=== PATIENT | female | born 1995 | race African-American/Black ===

== ENCOUNTER 2019-05-21 07:30 | Outpatient (CLI) | payer OTHER ==
--- NOTE | 2019-05-21 10:41 | ULT ---
OBSTETRICAL ULTRASOUND: INDICATIONS: Evaluate anatomy. FINDINGS: A single live intrauterine gestation, in vertex presentation. Placenta is anterior in location witho ut previa. ERINN is noted as 15.4 cm. Cardiac activity is noted at 149 beats per minute. The visualized head, cerebellum, , lateral ventricles, four-chambered heart, stomach, ki dneys, cord insertion, bladder, spine, lips, nose, extremities, and three-vessel cord appear within n ormal limits. The estimated weight is 840 g (1 lb 14 oz), 65th percentile. The average gestational age by ultrasound is 25 weeks 4 days with estimated due date 08/30/2019. Cli nical age is 25 weeks 1 day with estimated due date is 09/02/2019. Biparietal diameter is 6.13 cm, giving an estimated gestational age of 25 weeks 0 days. Head circumference is 23.03 cm, giving an estimated gestational age of 25 weeks 1 day. Abdominal circumference is 20.22 cm, giving an estimated gestational age of 24 weeks 6 days. Femoral neck is 5.05 cm, giving an estimated gestational age of 27 weeks 1 day. IMPRESSION: Single live intrauterine gestation with size and dates as above. POS: [facility]
== END 2019-05-21 07:31 | disposition home or self-care (01) ==
LOC: BICULT 07:30
PROVIDERS: ATTEND Family Medicine
DX: O09.892 Supervision of other high risk pregnancies, second trimester (principal); Z3A.25 25 weeks gestation of pregnancy
CPT/HCPCS: 76805

== ENCOUNTER 2019-11-22 17:37 | Emergency (ER) | payer OTHER, SELFPAY ==
[2019-11-22 19:40] LABS: Bilirubin Negative (Negative); Blood, Urine 2+ (Negative); Clarity Turbid (Clear); Glucose, Urine (Dipstick) Normal (Negative); Leukocyte Negative Leu/uL (Negative); Nitrite Negative (Negative); Protein, Urine (Dipstick) 20 mg/dL (Neg-Trace); Squamous Epithelial 21-50 HPF (0-3); Urobilinogen Normal mg/dL (Less than 2)
[2019-11-22 19:41] LABS: Bacteria/HPF 1+ HPF (None Seen)
[2019-11-22 19:48] LABS: Amphetamine Detected (NotDetected); Barbiturates Screen Not Detected (NotDetected); Benzodiazepine Screen Not Detected (NotDetected); Cocaine Metabolite Screen Not Detected (NotDetected); Medtox Control Line Valid? VALID (VALID); Medtox Reader # READER 4; Methadone Not Detected (NotDetected); Methamphetamine Detected (NotDetected); Opiate Screen Not Detected (NotDetected); Oxycodone Screen Not Detected (NotDetected); Phencyclidine (PCP) Not Detected (NotDetected); THC/Cannabinoid Screen Detected (NotDetected); Tricyclic Screen Not Detected (NotDetected)
== END 2019-11-23 00:44 ==
LOC: ERS 17:37
DX: T43.222A Poisoning by selective serotonin reuptake inhibitors, intentional self-harm, initial encounter (principal); F41.9 Anxiety disorder, unspecified; F32.9 Major depressive disorder, single episode, unspecified; F17.210 Nicotine dependence, cigarettes, uncomplicated; Z79.899 Other long term (current) drug therapy
CPT/HCPCS: 80306; 81003; 81015; 93005

== ENCOUNTER 2020-04-27 09:46 | Outpatient (CLI) | payer OTHER ==
--- NOTE | 2020-04-27 10:42 | ULT ---
ULTRASOUND OBSTETRICAL COMPLETE: DATE: 04/27/2020 HISTORY: 24-year-old female ICD-10: "O09.92, high-risk in second trimester. Cervical length, size an d dates, complete anatomy." FINDINGS: number: lainez lie: Began cephalic, but breech at end of study. Maternal cervix: 4 cm. Closed. Placenta: Posterior fundal. No placenta previa. Amniotic fluid volume: ERINN = 11 cm heart rate: 146 bpm The following anatomy is visualized, with no evidence of anomalies: Head, cerebellum, lateral ventricles, four-chamber heart, stomach, kidneys, cord insertion, bladder, cervical spine, thoracic spine, lumbar spine, sacrum, nose and lips, upper extremities, lower extremities, and three-vessel cord. biometry: Biparietal diameter (BPD): 5.2 cm 22 w 0 d Head circumference (HC): 19.9 cm 22 w 1 d Abdominal circumference (AC): 18.2 cm 23 w 0 d Femur length (FL): 4.0 cm 23 w 1 d Average ultrasound age (AUA): 22 w 4 d Estimated date of delivery (PAUL): 08/27/2020 Estimated weight (EFW): 541 g +/- 79 g IMPRESSION: 1) Live 2nd trimester intrauterine gestation. 2) Estimated gestational age of 22 weeks, 4 days 3) variable lie. 4) no anatomic abnormality identified.
== END 2020-04-27 09:47 | disposition home or self-care (01) ==
LOC: BICULT 09:46
PROVIDERS: ATTEND Nurse Practitioner
DX: O09.92 Supervision of high risk pregnancy, unspecified, second trimester (principal); Z3A.22 22 weeks gestation of pregnancy
CPT/HCPCS: 76805

== ENCOUNTER 2020-08-04 16:43 | Day surgery (SDC) | payer OTHER ==
[2020-08-04 17:44] VITALS: BP 103/55; TEMP 98.3; BMI 42.2
[2020-08-04] MEDS ORDERED: hydrALAZINE 20 MG/ML VIAL SLOW IVP PRN (19:53)
[2020-08-04] MEDS ORDERED: Lactated Ringer's 1,000 ML IV SCH (20:00)
[2020-08-04] MEDS ORDERED: Dextrose 5%-Lactated Ringers 1,000 ML IV SCH (20:00)
[2020-08-04 20:27] LABS: Medtox Reader # READER 4
[2020-08-04 20:29] LABS: Amphetamine Not Detected (NotDetected); Barbiturates Screen Not Detected (NotDetected); Benzodiazepine Screen Not Detected (NotDetected); Cocaine Metabolite Screen Not Detected (NotDetected); Medtox Control Line Valid? VALID (VALID); Methadone Not Detected (NotDetected); Methamphetamine Not Detected (NotDetected); Opiate Screen Not Detected (NotDetected); Oxycodone Screen Not Detected (NotDetected); Phencyclidine (PCP) Not Detected (NotDetected); THC/Cannabinoid Screen Not Detected (NotDetected); Tricyclic Screen Not Detected (NotDetected)
--- NOTE | 2020-08-04 20:46 | ULT ---
ULTRASOUND BIOPHYSICAL PROFILE: HISTORY: distress, premature contractions FINDINGS: A single live intrauterine gestation is seen. heart rate:141bpm ERINN: 22 cm Placenta: Posterior without placenta previa OB biophysical profile: tone: 2 breathin movements: 2 Amniotic fluid: 2 IMPRESSION: The ultrasound biophysical profile score is 8 out of 8.
--- NOTE | 2020-08-04 23:03 | PRG ---
DATE OF SERVICE: 08/04/2020 PRIMARY OB: Dr. Romie Roberts. CHIEF COMPLAINT: Abdominal pain. HISTORY OF PRESENT ILLNESS: The patient is a 25-year-old G4, P2 female with an intrauterine at 37 weeks and 5 days, presenting to Labor and Delivery with uterine contractions that began at 5:00 this morning. The patient reports the contractions have been a regular in frequency and also in intensity. She does admit that she had sex last night. She denies vaginal bleeding or leakage of fluid. She denies cough or fever, headache, chest pain, shortness of breath. She has experienced some nausea and vomiting this morning, which is not uncommon for her, but once the day starts that gets better. She denies constipation or diarrhea any and she denies any new rashes. She reports that she has two areas of a dry scaly rash that she has been told is a fungal infection on her left upper thigh and her umbilicus that is pruritic. She denies hip problems, knee problems, muscle weakness. Again denies vaginal bleeding, leakage of fluid, urinary urgency or frequency. PAST MEDICAL HISTORY: History of depression and anxiety. PAST SURGICAL HISTORY: She has had two prior C-sections. SOCIAL HISTORY: Denies drug or alcohol use. She does report that she smokes about a pack over 3 days. ALLERGIES: NO KNOWN DRUG ALLERGIES. MEDICATIONS: vitamins. OB LABS: Unavailable at time of dictation. REVIEW OF SYSTEMS: Per HPI. PHYSICAL EXAMINATION: VITAL SIGNS: Blood pressure 103/55, heart rate of 88, respiratory rate of 14, saturating 98% on room air, temperature 98.3. GENERAL: She appears to be in no acute distress. She is alert, oriented, cooperative, and pleasant to interact with. HEAD: Normocephalic, atraumatic. LUNGS: Clear to auscultation bilaterally. HEART: Has a regular rate and rhythm. ABDOMEN: Gravid, soft, nontender. EXTREMITIES: Nontender, nonedematous. PELVIS: Cervical exam per nursing staff is 1 and 50. heart tracing, the patient has some difficulty with tracing due to habitus. She also has initially tracing with baseline in the 140s with some minimal to moderate long-term variability, no accelerations. Uterine contractions show some irritability with contractions about every 7-10 minutes apart. BPP was performed and was found to be 8/8. Subsequent heart tracing did confirm change of the baseline in the 140s with moderate long-term variability, positive 15 x 15 accelerations. During the patient's stay, she has received 1 L of lactated Ringer's and 1 L of D5 LR at 250 an hour. ASSESSMENT AND PLAN: The patient is a 25-year-old G4, P2 female with an intrauterine at 37 weeks and 5 days with uterine contractions, but no evidence of labor. Fetus had a nonreactive NST, but has a reassuring BPP and subsequent heart tracing. The patient is being discharged home. She has an appointment with Dr. Roberts on Monday that we have encouraged she keep. Job ID: [id number]
== END 2020-08-04 22:00 | disposition home health service (06) ==
LOC: L&D/OP 16:43
PROVIDERS: ATTEND Family Medicine
DX: O47.1 False labor at or after 37 completed weeks of gestation (principal); O99.333 Smoking (tobacco) complicating pregnancy, third trimester; F17.210 Nicotine dependence, cigarettes, uncomplicated; O34.219 Maternal care for unspecified type scar from previous cesarean delivery; Z3A.37 37 weeks gestation of pregnancy
CPT/HCPCS: 76819; 80306

== ENCOUNTER 2020-08-14 10:26 | Outpatient (CLI) | payer OTHER ==
[2020-08-15 15:22] LABS: SARS-CoV-2 MS2 Positive; SARS-CoV-2 N Gene Negative; SARS-CoV-2 S Gene Negative; SARS-CoV-2 by NAA Not Detected (NotDetected); SARS-CoV-2 orf1ab Negative
== END 2020-08-14 10:27 | disposition home or self-care (01) ==
LOC: LABBT 10:26
PROVIDERS: ATTEND Family Medicine
DX: Z20.828 Contact with and (suspected) exposure to other viral communicable diseases (principal)
CPT/HCPCS: 87635; U0003

== ENCOUNTER 2020-08-17 09:42 | Inpatient (IN) | payer OTHER ==
[2020-08-17 10:14] VITALS: BMI 40.6
[2020-08-17] MEDS ORDERED: hydrALAZINE 20 MG/ML VIAL SLOW IVP PRN ×2 (11:04→15:54)
[2020-08-17] MEDS ORDERED: Promethazine HCl 25 MG/ML VIAL IM PRN ×3 (11:04→15:54)
[2020-08-17] MEDS ORDERED: Lactated Ringer's 1,000 ML IV SCH (11:04)
[2020-08-17] MEDS ORDERED: Bicitra 30 ML UDCUP PO SCH (11:04)
[2020-08-17] MEDS ORDERED: Ondansetron PF 4 MG/2 ML Vial IVP PRN ×3 (11:04→15:54)
[2020-08-17] MEDS ORDERED: CEFAZOLIN 3 GM in Sodium Chloride 0.9% 100 ML IVPB SCH (11:15)
[2020-08-17 11:51] LABS: Hemoglobin 10.1 g/dL (12.0-16.0); Mean Corpuscular HGB CONC 32.1 g/dL (32.0-36.0); Mean Corpuscular Hemoglobin 27.7 pg (27.0-31.0); Mean Corpuscular Volume 86.1 fL (78.0-98.0); Platelet Count 277 thou/uL (130-400); RBC Distribution Width 12.7 % (11.5-14.5); Red Blood Cell (RBC) Count 3.64 mill/uL (4.20-5.40); White Blood Cell (WBC) Count 7.8 thou/uL (4.8-10.8)
[2020-08-17 11:58] LABS: ALT (SGPT) 9 U/L (8-55); AST (SGOT) 12 U/L (5-34); Albumin 3.2 g/dL (3.5-5.0); Alkaline Phosphatase 276 U/L (40-110); Anion Gap 12 mmol/L (10-20); BUN (Urea Nitrogen) 8 mg/dL (7.0-18.7); Bilirubin, Total 0.4 mg/dL (0.2-1.2); Calc. Creatinine Clearance 239 mL/min (70-130); Calcium 8.4 mg/dL (7.8-10.44); Carbon Dioxide 24 mmol/L (22-29); Chloride 105 mmol/L (98-107); Estimated GFR-MDRD Greater than 90; Globulin 3.4 g/dL (2.4-3.5); Glucose 73 mg/dL (70-105); Potassium 4.1 mmol/L (3.5-5.1); Protein, Total 6.6 g/dL (6.0-8.3); Sodium 137 mmol/L (136-145)
[2020-08-17 12:15] LABS: HBSAg Index 0.13 S/CO (0-0.99); Hep B Surf Ag Non-Reactive S/CO (NonReactive); Syphilis Antibody Nonreactive (Nonreactive); Syphilis Antibody Index 0.04 S/CO (<1.00 Non-Reactive)
[2020-08-17] MEDS ORDERED: Ondansetron PF 4 MG/2 ML Vial ONE ×2 (12:51→12:52)
[2020-08-17] MEDS ORDERED: ePHEDrine 50 MG/ML VIAL ONE (12:51)
[2020-08-17] MEDS ORDERED: Ketorolac Tromethamine 30 MG/ML VIAL ONE (12:51)
[2020-08-17] MEDS ORDERED: PHENYLEPHRINE-NS 100 MCG/ML 10 ML SYRINGE ONE (12:51)
[2020-08-17] MEDS ORDERED: Oxytocin 10 UNITS/ML VIAL ONE (12:51)
[2020-08-17] MEDS ORDERED: Morphine PF 10 MG/10 ML VIAL ONE (12:51)
[2020-08-17] MEDS ORDERED: L&D-Morphine 4 MG/ML VIAL SLOW IVP PRN (13:28)
[2020-08-17] MEDS ORDERED: Naloxone HCl 0.4 mg/ml Vial IV PRN (13:28)
[2020-08-17] MEDS ORDERED: Naloxone HCl 0.4 mg/ml Vial IVP PRN ×2 (13:28)
[2020-08-17] MEDS ORDERED: Promethazine HCl 25 MG SUPP PR PRN (13:28)
[2020-08-17] MEDS ORDERED: Ketorolac Tromethamine 30 MG/ML VIAL IVP PRN (13:28)
[2020-08-17] MEDS ORDERED: Meperidine HCl/PF 25 MG/ML VIAL SLOW IVP PRN (13:28)
[2020-08-17] MEDS ORDERED: HYDROmorphone 2 MG/ML VIAL SLOW IVP PRN (13:28)
[2020-08-17] MEDS ORDERED: Ondansetron HCl/PF 4 MG/2 ML Vial IVP PRN (13:28)
[2020-08-17] MEDS ORDERED: Ketorolac Tromethamine 30 MG/ML VIAL IVP SCH (13:30)
[2020-08-17] MEDS ORDERED: Communication Order-Pharmacy FS SCH (13:30)
[2020-08-17] MEDS ORDERED: diphenhydrAMINE 50 MG/ML VIAL ONE (15:23)
[2020-08-17] MEDS: diphenhydrAMINE 50 MG/ML VIAL IVP PRN ×2 (15:25→23:35)
[2020-08-17] MEDS ORDERED: Simethicone Chewable 80 MG TAB PO PRN (15:54)
[2020-08-17] MEDS ORDERED: diphenhydrAMINE 25 MG CAP PO PRN (15:54)
[2020-08-17] MEDS ORDERED: Adacel (T-DAP) 0.5 ML SYRINGE IM ONE (15:54)
[2020-08-17] MEDS ORDERED: NS / Oxytocin 40 units/1000ml 1,000 ML IV SCH (15:54)
[2020-08-17] MEDS ORDERED: Lanolin Ointment 7 GM TUBE TOP PRN (15:54)
[2020-08-17] MEDS ORDERED: Bisacodyl 10 MG SUPP PR PRN (15:54)
[2020-08-17] MEDS: Ketorolac Tromethamine 30 MG/ML VIAL IVP SCH ×2 (18:50→23:34)
[2020-08-17] MEDS: Docusate Calcium (SURFAK) 240 MG CAP PO SCH (22:04)
[2020-08-17] MEDS: Ferrous Sulfate 325 MG TAB PO SCH (23:26)
[2020-08-18] MEDS ORDERED: Meperidine HCl/PF 25 MG/ML VIAL IM PRN (01:30)
[2020-08-18] MEDS ORDERED: HYDROcodone/Acetaminophen 5/325 mg Tablet PO PRN (01:30)
[2020-08-18] MEDS ORDERED: Sodium Chloride 0.9% 10 ML ONE (04:54)
[2020-08-18] MEDS: Ketorolac Tromethamine 30 MG/ML VIAL IVP SCH (05:00)
[2020-08-18 06:37] LABS: Mean Corpuscular HGB CONC 32.7 g/dL (32.0-36.0); Mean Corpuscular Hemoglobin 28.3 pg (27.0-31.0); Mean Corpuscular Volume 86.6 fL (78.0-98.0); Mean Platelet Volume 8.5 fL (7.4-10.4); Platelet Count 230 thou/uL (130-400); RBC Distribution Width 12.9 % (11.5-14.5); Red Blood Cell (RBC) Count 3.16 mill/uL (4.20-5.40); White Blood Cell (WBC) Count 8.3 thou/uL (4.8-10.8)
[2020-08-18] MEDS: Ferrous Sulfate 325 MG TAB PO SCH ×2 (07:51→23:31)
[2020-08-18] MEDS: Prenatal Vitamin 1 TAB PO SCH (07:54)
[2020-08-18] MEDS: Docusate Calcium (SURFAK) 240 MG CAP PO SCH ×2 (07:54→20:57)
[2020-08-18] MEDS: HYDROcodone/Acetaminophen 5/325 mg Tablet PO PRN ×2 (12:14→16:24)
[2020-08-18] MEDS: Ibuprofen 800 MG TAB PO SCH ×2 (15:06→20:56)
[2020-08-19] MEDS: HYDROcodone/Acetaminophen 5/325 mg Tablet PO PRN ×5 (01:40→21:07)
[2020-08-19] MEDS: Ibuprofen 800 MG TAB PO SCH ×3 (05:41→21:06)
[2020-08-19] MEDS: Docusate Calcium (SURFAK) 240 MG CAP PO SCH ×2 (09:14→21:06)
[2020-08-19] MEDS: Prenatal Vitamin 1 TAB PO SCH (09:14)
[2020-08-19] MEDS: Ferrous Sulfate 325 MG TAB PO SCH ×2 (09:15→21:07)
--- NOTE | 2020-08-19 19:51 | OP ---
DATE OF PROCEDURE: 08/17/2020 PREOPERATIVE DIAGNOSES: 1. 38 weeks 4 days. 2. Gestational hypertension. 3. Previous x2. POSTOPERATIVE DIAGNOSES: 1. 38 weeks 4 days. 2. Gestational hypertension. 3. Previous x2. PROCEDURES PERFORMED: Repeat low cervical transverse . ANESTHESIA: Spinal. DESCRIPTION OF PROCEDURE: After informed consent was obtained from the patient, she was taken to the operating room where spinal anesthesia was administered. She was prepped and draped in the usual sterile fashion. A Pfannenstiel incision was created over her previous scar and carried down to the fascia. The fascia was nicked in the midline. Skin bleeders were cauterized with the Bovie. The fascial incision was extended transversely with Joshua scissors. The superior fascial segment was grasped with Petros's and elevated and the underlying rectus muscles were dissected free first bluntly and then sharply. This was repeated with the inferior fascial segment. The rectus muscles were divided in the midline with Joshua scissors and blunt dissection. Bladder blade was inserted. The lower uterine segment was found to be extremely thin, although not quite a window. The uterus was entered in a low-transverse fashion with a clean #10 scalpel blade. Clear amniotic fluid was encountered. Hysterotomy was extended superolaterally with blunt dissection. The vertex was delivered onto the operative field followed easily by the remainder of the . Cord was clamped x2 and ligated and a vigorous female was handed to the staff in attendance. Cord blood was obtained. The placenta was manually expressed. The uterus was exteriorized and freed of clots and debris. The uterus was repaired with a running locking suture of 1 Monocryl in a single full-thickness layer, followed by a second imbricating layer of 0 Vicryl. Hemostasis was observed. The abdomen was copiously irrigated with saline. The uterus was returned to the abdomen. Hemostasis was again observed. The peritoneum was repaired with a running suture of 3-0 Vicryl. The fascia was reapproximated with a running suture of 0 PDS. Three interrupted sutures of 3-0 Vicryl were placed in the subdermal layer to reapproximate the skin, which was closed with skin tracie. Sponge and instrument counts were correct x4. She tolerated the procedure well and suffered no acute complications. She was taken to Recovery in stable condition and the infant to the nursery in stable condition. FINDINGS: Viable female , 6 pounds 1 ounce. Apgars 9 and 9 at 1 and 5 minutes respectively. COMPLICATIONS: None. ESTIMATED BLOOD LOSS: 700 mL. Job ID: [id number]
[2020-08-19 20:22] VITALS: TEMP 98.1
[2020-08-19] MEDS ORDERED: Milk Of Magnesia 30 ML UDCUP PO SCH (21:00)
[2020-08-20] MEDS: HYDROcodone/Acetaminophen 5/325 mg Tablet PO PRN ×2 (02:41→11:45)
[2020-08-20] MEDS: Ibuprofen 800 MG TAB PO SCH ×2 (05:50→14:39)
[2020-08-20] MEDS: Ferrous Sulfate 325 MG TAB PO SCH (07:34)
[2020-08-20 08:08] VITALS: BP 107/56
[2020-08-20] MEDS: Prenatal Vitamin 1 TAB PO SCH (09:09)
[2020-08-20] MEDS: Docusate Calcium (SURFAK) 240 MG CAP PO SCH (09:09)
== END 2020-08-20 16:20 | disposition home or self-care (01) | DRG 788 ==
LOC: L&D 09:42 → 3SW 16:26
PROVIDERS: ADMIT Family Medicine; ATTEND Family Medicine
PROC: 10D00Z1 Extraction of Products of Conception, Low, Open Approach (ICD-10-PCS; principal; 2020-08-17)
DX: O34.211 Maternal care for low transverse scar from previous cesarean delivery (principal); O13.4 Gestational [pregnancy-induced] hypertension without significant proteinuria, complicating childbirth; Z20.828 Contact with and (suspected) exposure to other viral communicable diseases; Z3A.38 38 weeks gestation of pregnancy; Z37.0 Single live birth
CPT/HCPCS: 36415; 51702; 80053; 85027; 86780; 86850; 86900; 86901; 87340; J0690; J1200; J1885; J2270; J2310; J2405; J3490; Q0163

== ENCOUNTER 2021-12-11 18:20 | Emergency (ER) | payer OTHER ==
[2021-12-11] MEDS ORDERED: Ketorolac Tromethamine 30 MG/ML VIAL ONE (19:51)
== END 2021-12-11 20:22 | disposition home or self-care (01) ==
LOC: ERS 18:20
DX: M54.50 Low back pain, unspecified (principal); F17.210 Nicotine dependence, cigarettes, uncomplicated
CPT/HCPCS: 96372; 99283; J1885